=== PATIENT | male | born 1965 | race American Indian/Alaskan Native ===

== ENCOUNTER 2017-08-15 22:27 | Emergency (ER) | payer MEDICAID ==
[2017-08-16 00:51] LABS: Hematocrit 45.8 % (35.5-45.6); Mean Corpuscular HGB Conc 33 % (32-34); Mean Corpuscular Hemoglobin 29 pg (28-32); Mean Corpuscular Volume 90 fl (84-94); Platelet Count 261 K/mm3 (140-440); Red Blood Count 5.12 M/mm3 (3.65-5.03); Red Cell Distribution Width 14.2 % (13.2-15.2)
[2017-08-16 01:00] LABS: Anion Gap 17 mmol/L; BUN/Creatinine Ratio 13; Blood Urea Nitrogen 12 mg/dL (9-20); Calcium 8.9 mg/dL (8.4-10.2); Carbon Dioxide 25 mmol/L (22-30); Chloride 100.4 mmol/L (98-107); Glucose 97 mg/dL (75-100); Potassium 3.3 mmol/L (3.6-5.0); Sodium 139 mmol/L (137-145)
[2017-08-16 01:09] LABS: Urine Drugs of Abuse Note Disclamer
[2017-08-16 01:25] LABS: Bilirubin,Urine NEG (Negative); Blood,Urine NEG (Negative); Ketones,Urine NEG (Negative); Leukocyte Esterase,Urine NEG (Negative); Mucus,Urine 2+ /HPF; Nitrite,Urine NEG (Negative); Protein,Urine <15 mg/dL mg/dL (Negative); RBC,Urine < 1.0 /HPF (0.0-6.0)
[2017-08-16 04:44] LABS: Basophils % (Manual) 0 % (0.0-1.8); Blastocytes % (Manual) 0 %
[2017-08-16 04:45] LABS: Anisocytosis 1+; Diff Status Complete; Hypochromasia Few
[2017-08-16] MEDS ORDERED: K-DUR PO ONE (05:27)
--- NOTE | 2017-08-16 05:29 | Emergency Department Report ---
ED Medical Clearance HPI - General Chief complaint: Medical Clearance Stated complaint: MED CLEARANCE Source: patient Mode of arrival: Ambulatory - History of Present Illness MD Complaint: medical clearance request Reason for Medical Clearance: other (rehabilitation) Traumatic Symptoms: denies traumatic injury Associated Symptoms: denies: chest pain Treatments Prior to Arrival: none Home medications: Home Medications Medication Instructions Recorded Confirmed Last Taken ALBUTEROL NEB's [Proventil 0.083% 1 ampul IH Q6H PRN 03/03/15 08/16/17 03/03/15 NEBS] Stribild Tablet 1 tab PO DAILY 03/03/15 08/16/17 03/03/15 Previous Rx's Medication Instructions Recorded Last Taken Type ALBUTEROL NEB's [Proventil 0.083% 2.5 mg IH Q4H PRN #25 neb 03/24/15 Unknown Rx NEBS] Albuterol Sulfate [Ventolin HFA] 2 puff IH Q4H PRN #1 hfa.aer.ad 03/24/15 Unknown Rx Azithromycin [Zithromax Z-KYRA] 250 mg PO DAILY #6 tablet 04/08/15 Unknown Rx Albuterol *Only Ed* [Proventil 2.5 mg IH Q4H PRN #10 nebu 12/16/15 Unknown Rx 0.5% NEBS] Arformoterol Nebu [Brovana Nebu] 15 mcg IH Q12HRT #7 ml 12/16/15 Unknown Rx Azithromycin [Zithromax TAB] 500 mg PO QDAY #7 tablet 12/16/15 Unknown Rx Budesonide [Pulmicort Respules] 0.5 mg IH Q12HRT #7 nebu 12/16/15 Unknown Rx Elvitegr/Cobicist/Emtric/Tenof 1 each PO QDAY #30 tablet 12/16/15 Unknown Rx [Stribild (Nf)] Famotidine [Pepcid] 20 mg PO BID #60 tablet 12/16/15 Unknown Rx HYDROcodone/APAP 7.5-325 [[place] 1 each PO Q8H PRN #60 tablet 12/16/15 Unknown Rx 7.5-325 mg TAB] LORazepam [Ativan] 2 mg PO Q4H PRN #90 tablet 12/16/15 Unknown Rx Lactulose [Cephulac] 20 gm PO QDAY #7 oral.liqd 12/16/15 Unknown Rx predniSONE [Deltasone] 20 mg PO QDAY #10 tablet 12/16/15 Unknown Rx traMADol [Ultram 50 MG tab] 50 mg PO Q6H PRN #90 tablet 12/16/15 Unknown Rx Allergies/Adverse reactions: Allergies Allergy/AdvReac Type Severity Reaction Status Date / Time No Known Allergies Allergy Verified 06/06/14 00:20 ED Review of Systems ROS: Stated complaint: MED CLEARANCE Other details as noted in HPI Comment: All other systems reviewed and negative ED Past Medical Hx - Past Medical History Previous Medical History?: Yes Hx Congestive Heart Failure: No Hx Diabetes: No Hx Deep Vein Thrombosis: No Hx Asthma: Yes Hx COPD: Yes Hx HIV: Yes - Surgical History Past Surgical History?: Yes Hx Pacemaker: No Hx Internal Defibrillator: No Additional Surgical History: hernia repair - Social History Smoking Status: Current Every Day Smoker Substance Use Type: Alcohol, Cocaine - Medications Home Medications: Home Medications Medication Instructions Recorded Confirmed Last Taken Type ALBUTEROL NEB's [Proventil 0.083% 1 ampul IH Q6H PRN 03/03/15 08/16/17 03/03/15 History NEBS] Stribild Tablet 1 tab PO DAILY 03/03/15 08/16/17 03/03/15 History ALBUTEROL NEB's [Proventil 0.083% 2.5 mg IH Q4H PRN #25 neb 03/24/15 08/16/17 Unknown Rx NEBS] Albuterol Sulfate [Ventolin HFA] 2 puff IH Q4H PRN #1 hfa.aer.ad 03/24/15 Unknown Rx Azithromycin [Zithromax Z-KYRA] 250 mg PO DAILY #6 tablet 04/08/15 08/16/17 Unknown Rx Albuterol *Only Ed* [Proventil 2.5 mg IH Q4H PRN #10 nebu 12/16/15 08/16/17 Unknown Rx 0.5% NEBS] Arformoterol Nebu [Brovana Nebu] 15 mcg IH Q12HRT #7 ml 12/16/15 08/16/17 Unknown Rx Azithromycin [Zithromax TAB] 500 mg PO QDAY #7 tablet 12/16/15 08/16/17 Unknown Rx Budesonide [Pulmicort Respules] 0.5 mg IH Q12HRT #7 nebu 12/16/15 08/16/17 Unknown Rx Elvitegr/Cobicist/Emtric/Tenof 1 each PO QDAY #30 tablet 12/16/15 08/16/17 Unknown Rx [Stribild (Nf)] Famotidine [Pepcid] 20 mg PO BID #60 tablet 12/16/15 08/16/17 Unknown Rx HYDROcodone/APAP 7.5-325 [[place] 1 each PO Q8H PRN #60 tablet 12/16/15 08/16/17 Unknown Rx 7.5-325 mg TAB] LORazepam [Ativan] 2 mg PO Q4H PRN #90 tablet 12/16/15 08/16/17 Unknown Rx Lactulose [Cephulac] 20 gm PO QDAY #7 oral.liqd 12/16/15 08/16/17 Unknown Rx predniSONE [Deltasone] 20 mg PO QDAY #10 tablet 12/16/15 08/16/17 Unknown Rx traMADol [Ultram 50 MG tab] 50 mg PO Q6H PRN #90 tablet 12/16/15 08/16/17 Unknown Rx ED Physical Exam - General Limitations: No Limitations - Head Head exam: Present: atraumatic - Eye Eye exam: Present: EOMI - Neck Neck exam: Present: full ROM - Respiratory Respiratory exam: Absent: stridor - Cardiovascular Cardiovascular Exam: Present: regular rate - Neurological Exam Neurological exam: Present: alert, oriented X3, CN II-XII intact, normal gait - Psychiatric Psychiatric exam: Present: anxious. Absent: depressed, agitated, flat affect, homicidal ideation, suicidal ideation ED Course Vital Signs 08/15/17 08/16/17 23:29 00:02 Temperature 97.8 F 97.8 F Pulse Rate 69 70 Respiratory 18 18 Rate Blood Pressure 144/79 144/79 O2 Sat by Pulse 98 98 Oximetry ED Medical Decision Making - Lab Data Result diagrams: 08/16/17 00:10 08/16/17 00:10 ED Disposition Clinical Impression: Substance abuse, Medical clearance for psychiatric admission, Alcohol abuse Disposition: [id number] PSY HOSP/PSY UNIT Is pt being admited?: No Does the pt Need Aspirin: No Condition: Stable Instructions: Abuse of Alcohol (ED), Medical Clearance for Substance Abuse Treatment (ED) Additional Instructions: be sure to report to [facility] for Admission Referrals: PRIMARY CARE, [Primary Care Provider] - 3-5 Days Time of Disposition: 05:43
[2017-08-16 08:29] VITALS: BP 123/75
--- NOTE | 2017-08-16 13:55 | Consultation ---
History of Present Illness - Reason for Consult Consult date: 08/16/17 Reason for consult: Mental Health Evaluation Requesting physician: ALECIA AVILES - Chief Complaint Chief complaint: "I want help" - History of Present Psychiatric Illness 51 y.o. AA male presenting to [facility] for medical clearance for substance/alcohol rehab services at [facility]. Patient has a hx of substance and alcohol abuse. Today patient is calm and cooperative during the assessment. He stated that he want help for his substance and alcohol abuse. He stated attending rehab services in the past, but relapse after being sober/clean. He stated that he is experiencing marital problems with his spouse which exacerbate his willing to drink and use cocaine. He stated that he use substances to ease the "mental pain" he experience. He stated that his drug use has increased in the past couple months. He stated drinking alcohol for years. He denies SI/HI's and AVH's. He denies sleep disturbance and a poor appetite. Medications and Allergies Allergies Allergy/AdvReac Type Severity Reaction Status Date / Time No Known Allergies Allergy Verified 06/06/14 00:20 Home Medications Medication Instructions Recorded Confirmed Last Taken Type ALBUTEROL NEB's [Proventil 0.083% 1 ampul IH Q6H PRN 03/03/15 08/16/17 03/03/15 History NEBS] Stribild Tablet 1 tab PO DAILY 03/03/15 08/16/17 03/03/15 History ALBUTEROL NEB's [Proventil 0.083% 2.5 mg IH Q4H PRN #25 neb 03/24/15 08/16/17 Unknown Rx NEBS] Albuterol Sulfate [Ventolin HFA] 2 puff IH Q4H PRN #1 hfa.aer.ad 03/24/15 Unknown Rx Azithromycin [Zithromax Z-KYRA] 250 mg PO DAILY #6 tablet 04/08/15 08/16/17 Unknown Rx Albuterol *Only Ed* [Proventil 2.5 mg IH Q4H PRN #10 nebu 12/16/15 08/16/17 Unknown Rx 0.5% NEBS] Arformoterol Nebu [Brovana Nebu] 15 mcg IH Q12HRT #7 ml 12/16/15 08/16/17 Unknown Rx Azithromycin [Zithromax TAB] 500 mg PO QDAY #7 tablet 12/16/15 08/16/17 Unknown Rx Budesonide [Pulmicort Respules] 0.5 mg IH Q12HRT #7 nebu 12/16/15 08/16/17 Unknown Rx Elvitegr/Cobicist/Emtric/Tenof 1 each PO QDAY #30 tablet 12/16/15 08/16/17 Unknown Rx [Stribild (Nf)] Famotidine [Pepcid] 20 mg PO BID #60 tablet 12/16/15 08/16/17 Unknown Rx HYDROcodone/APAP 7.5-325 [[place] 1 each PO Q8H PRN #60 tablet 12/16/15 08/16/17 Unknown Rx 7.5-325 mg TAB] LORazepam [Ativan] 2 mg PO Q4H PRN #90 tablet 12/16/15 08/16/17 Unknown Rx Lactulose [Cephulac] 20 gm PO QDAY #7 oral.liqd 12/16/15 08/16/17 Unknown Rx predniSONE [Deltasone] 20 mg PO QDAY #10 tablet 12/16/15 08/16/17 Unknown Rx traMADol [Ultram 50 MG tab] 50 mg PO Q6H PRN #90 tablet 12/16/15 08/16/17 Unknown Rx Past psychiatric history - Past Medical History Past Medical History: COPD, HIV/AIDS, other (Asthma) Past Surgical History: Other (Hernia Repair) - past Psychiatric treatment and history psychiatric treatment history: Rehab for substance/alcohol abuse in the past. Fam hx of substance abuse. - Social History Social history: other ([employer] graduate) Mental Status Exam - Vital signs Last Vital Signs Temp 97.7 F 08/16/17 07:21 Pulse 71 08/16/17 07:21 Resp 18 08/16/17 07:21 BP 123/75 08/16/17 07:21 Pulse Ox 97 08/16/17 07:21 - Exam Narrative exam: MSE: Appearance: calm, cooperative Behavior: regular eye contact Speech: regular rate and tone Mood: "okay" Affect: congruent to mood Thought Process: linear Thought Content: denies SI/HI's and AVH's Motor Activity: ambulatory Cognition: A/Ox 3 Insight: fair Judgment: fair Results Result Diagrams: 08/16/17 00:10 08/16/17 00:10 Abnormal lab results 08/16/17 08/16/17 08/16/17 Range/Units 00:10 00:10 00:50 RBC 5.12 H (3.65-5.03) M/mm3 Hct 45.8 H (35.5-45.6) % Monocytes % (Manual) 15.0 H (0.0-7.3) % Eosinophils % (Manual) 5.0 H (0.0-4.3) % Potassium 3.3 L (3.6-5.0) mmol/L Ur Specific [place] 1.032 H (1.003-1.030) All other labs normal. Assessment and Plan Assessment and plan: Impression: Substance Use DO (cocaine). Today patient is calm and cooperative during the assessment. DDx: R/O Mood DO, Alcohol Use DO Recommendation/Plan: Patient will be inpatient at [facility] for Substance/ Rehab services.
== END 2017-08-16 09:30 ==
LOC: EEVIPCON 22:27 → ED 22:27
DX: F19.10 Other psychoactive substance abuse, uncomplicated (principal); F10.10 Alcohol abuse, uncomplicated; J44.9 Chronic obstructive pulmonary disease, unspecified; F17.200 Nicotine dependence, unspecified, uncomplicated
CPT/HCPCS: 36415; 80048; 80307; 81001; 85007; 85025; 99284; G0480; 80320